=== PATIENT | female | born 2000 | race African-American/Black ===

== ENCOUNTER 2022-03-07 15:04 | Emergency (ER) | payer SELFPAY ==
[~2022-03-07] VITALS: Ht 162.6 cm; Wt 92.0 kg
[2022-03-07 15:12] VITALS: BP 98/78
== END 2022-03-07 16:31 | disposition left against medical advice (07) ==
LOC: ER 15:04
DX: Z53.21 Procedure and treatment not carried out due to patient leaving prior to being seen by health care provider (principal)